=== PATIENT | female | born 1965 | race Caucasian/White ===

== ENCOUNTER 2017-08-14 08:03 | Emergency (ER) | payer MEDICAID ==
[~2017-08-14] VITALS: Ht 152.4 cm; Wt 56.8 kg
[2017-08-14 08:11] VITALS: BP 112/69
[2017-08-14] MEDS ORDERED: IMI50 PO (08:21)
--- NOTE | 2017-08-14 08:22 | NUR ---
Patient ambulated to bed 11 at this time.
--- NOTE | 2017-08-14 08:23 | NUR ---
52/F BIB FAMILY C/O HEADACHE AND MID ABDOMINAL PAIN & N/V X1DAY.SKIN IS PINK/WARM/DRY; AAOX4 WITH EVEN AND STEADY GAIT; LUNGS CLEAR BL; HR EVEN AND REGULAR; PT DENIES ANY FEVER, CP, SOB, OR COUGH AT THIS TIME; PATIENT STATES PAIN OF 9/10 AT THIS TIME; PATIENT POSITIONED FOR COMFORT; HOB ELEVATED; BEDRAILS UP X2; BED DOWN. ER MADE AWARE OF PT STATUS. Addendum: 08/14/17 at 0849 by [email or web address] HX OF MIGRAINE & BRAIN ANEURYSM IN 2010.
[2017-08-14] MEDS ORDERED: ONDANSETRON 4 MG/2 ML VIAL IVP ONE (08:45)
[2017-08-14] MEDS ORDERED: KETOROLAC 30 MG/ML VIAL IVP ONE (08:45)
[2017-08-14] MEDS ORDERED: diphenhydrAMINE 50 MG/ML VIAL IVP ONE (08:45)
[2017-08-14] MEDS ORDERED: NACL 0.9% 1,000 ML IV ONE (08:45)
[2017-08-14] MEDS ORDERED: SUMAtriptan 6 MG/0.5 ML VIAL SUBQ ONE (09:15)
--- NOTE | 2017-08-14 10:16 | NUR ---
Patient appears to be SLEEPING comfortably in bed. Vital Signs within normal limits. Respirations even and unlabored.
[2017-08-14 10:20] VITALS: BP 114/71
--- NOTE | 2017-08-14 10:20 | NUR ---
Patient discharged with v/s stable. Written and verbal after care instructions given and explained. Patient verbalized understanding. Ambulatory with steady gait. All questions addressed prior to discharge. Advised to follow up with PMD.
== END 2017-08-14 10:20 | disposition home or self-care (01) ==
LOC: MED 08:03
DX: G43.909 Migraine, unspecified, not intractable, without status migrainosus (principal); R11.2 Nausea with vomiting, unspecified
CPT/HCPCS: 81002; 81025; 96361; 96372; 96374; 96375; 99284; J1200; J1885; J2405; J3030; J7030

== ENCOUNTER 2023-01-11 12:57 | Emergency (ER) | payer MEDICAID ==
[~2023-01-11] VITALS: Ht 157.5 cm; Wt 61.7 kg
[~2023-01-11 12:57] MED LIST: IMI50 PO
--- NOTE | 2023-01-11 13:00 | NUR ---
TO ER BED 8
[2023-01-11 13:01] VITALS: BP 126/69
[2023-01-11] MEDS ORDERED: ALUMINUM HYD/MAG/SIMETHICONE 30 ML UDC PO ONE (13:25)
[2023-01-11] MEDS ORDERED: ACETAMINOPHEN EXTRA STRENGTH 500 MG TAB PO ONE (13:25)
[2023-01-11] MEDS ORDERED: FAMOTIDINE 20 MG TAB PO ONE (13:25)
--- NOTE | 2023-01-11 13:25 | NUR ---
57 y/o F BIB self from home c/o chest pain x 3 days. Patient A&Ox4, ambulatory, states chest pain 8/10, sharp/burning/constant, radiating from abdomen to chest and left shoulder. Aggrevating factors w/ laying position. Ptaient states dizziness, nausea. Reports diclofenac with minor relief. Denies SOB, chills, fever, vomiting, constipation, diarrhea, urinary symptoms. Bed locked in lowest position, side rails x 1. PMH/Sx/Meds: Denies NKDA
--- NOTE | 2023-01-11 13:41 | NUR ---
Lab at bedside
--- NOTE | 2023-01-11 13:41 | NUR ---
RAD at bedside
[2023-01-11 14:15] LABS: BASOPHILS % (AUTO) 0.6 % (0.0-2.0); EOSINOPHILS # (AUTO) 0.2 K/uL (0-0.4); EOSINOPHILS % (AUTO) 2.4 % (0.0-4.0); HEMATOCRIT 44.8 % (36-48); LYMPHOCYTES # (AUTO) 3.9 K/uL (2.5-16.5); LYMPHOCYTES % (AUTO) 49.2 % (20.5-51.1); MEAN CORPUSCULAR HEMOGLOBIN 29 pg (27-31); MEAN CORPUSCULAR HGB CONC 33 g/dL (33-37); MEAN CORPUSCULAR VOLUME 87.6 fL (80-94); MONOCYTES # (AUTO) 0.6 K/uL (0.8-1.0); MONOCYTES % (AUTO) 7.9 % (1.7-9.3); NEUTROPHILS # (AUTO) 3.1 K/uL (1.8-7.7); NEUTROPHILS % (AUTO) 39.9 % (42.2-75.2); PLATELET COUNT (AUTO) 269 K/uL (140-450); RED BLOOD CELL COUNT(AUTO) 5.12 MIL/uL (4.20-5.40); RED CELL DISTRIBUTION WIDTH 14.5 % (11.6-13.7); WHITE BLOOD COUNT (AUTO) 7.9 K/uL (4.8-10.8)
[2023-01-11 14:36] LABS: ALBUMIN 3.5 g/dL (3.4-5.0); ANION GAP 12.3 (8-16); ASPARTATE AMINOTRANSFERASE 14 U/L (15-37); CARBON DIOXIDE 27.1 mmol/L (21-32); CHLORIDE 104 mmol/L (98-107); CREATININE 0.8 mg/dL (0.6-1.3); GFR ARICAN-AMERICAN 95 mL/min (>90); GLUCOSE 133 mg/dL (74-106); LIPASE 167 U/L (73-393); POTASSIUM 3.4 mmol/L (3.5-5.1); SODIUM SERUM 140 mmol/L (136-145); TOTAL BILIRUBIN 0.6 mg/dL (0.0-1.0); UREA NITROGEN, BLOOD 19 mg/dL (7-18)
[2023-01-11] MEDS ORDERED: ALUM355S59 PO (14:50)
[2023-01-11] MEDS ORDERED: FAMO-90 PO (14:50)
[2023-01-11 15:08] VITALS: BP 117/62
--- NOTE | 2023-01-11 15:08 | NUR ---
Patient discharged with v/s stable. Written and verbal after care instructions given and explained for Gastroesophageal Reflux Disease, Adult. Patient alert, oriented and verbalized understanding of instructions. Ambulatory with steady gait. All questions addressed prior to discharge. ID band removed. Patient advised to follow up with PMD. Rx of Pepcid, Maalox Advanced Suspension given. Patient educated on indication of medication including possible reaction and side effects. Opportunity to ask questions provided and answered. Copies of RAD, blood work, UA given to patient.
== END 2023-01-11 15:08 | disposition home or self-care (01) ==
LOC: MED 12:57
DX: K21.9 Gastro-esophageal reflux disease without esophagitis (principal); Z79.899 Other long term (current) drug therapy
CPT/HCPCS: 36415; 71045; 80053; 83690; 84484; 85025; 93005; 99285

== ENCOUNTER 2023-08-24 07:23 | Emergency (ER) | payer SELFPAY ==
[~2023-08-24] VITALS: Ht 147.3 cm; Wt 60.8 kg
[~2023-08-24 07:23] MED LIST changes: +ALUM355S59 PO; +FAMO-90 PO
[2023-08-24 07:41] VITALS: BP 139/81; PULSE 73; RESP 18; TEMP 96.6; O2SAT 99
[2023-08-24] MEDS ORDERED: METOCLOPRAMIDE 10 MG/2 ML INJ VIAL IVP ONE (08:15)
[2023-08-24] MEDS ORDERED: diphenhydrAMINE 50 MG/ML VIAL IVP ONE (08:15)
[2023-08-24] MEDS ORDERED: NACL 0.9% 1,000 ML IV ONE (08:15)
[2023-08-24 08:42] LABS: APPEARANCE,URINE CLEAR (CLEAR); BILIRUBIN,URINE NEGATIVE (NEGATIVE); BLOOD, URINE 2+ (NEGATIVE); COLOR,URINE YELLOW (YELLOW); LEUKOCYTE ESTERASE ,URINE NEGATIVE (NEGATIVE); NITRITE, URINE NEGATIVE (NEGATIVE); PROTEIN,URINE NEGATIVE (NEGATIVE); UGLUCOSE NEGATIVE (NEGATIVE); UROBILINOGEN,URINE 0.2 EU/dL (0.2 - 1)
[2023-08-24 08:52] LABS: BACTERIA,URINE FEW /HPF (None Seen); SQUAMOUS EPITHELIAL CELL,UR 0-3 (FEW) /LPF (0-3 (FEW)); WBC,URINE 0-5 /HPF (0-5)
[2023-08-24] MEDS ORDERED: IBUP-2213 PO (09:19)
[2023-08-24] MEDS ORDERED: ACET-8905 PO (09:19)
[2023-08-24] MEDS ORDERED: ONDA8TAB87 PO (09:19)
[2023-08-24 09:55] VITALS: BP 134/72; PULSE 65; RESP 18; TEMP 97.8; O2SAT 97
== END 2023-08-24 09:55 | disposition home or self-care (01) ==
LOC: MED 07:23
DX: R51.9 Headache, unspecified (principal); E11.9 Type 2 diabetes mellitus without complications; Z90.710 Acquired absence of both cervix and uterus; Z79.899 Other long term (current) drug therapy
CPT/HCPCS: 81001; 82948; 96361; 96374; 96375; 99284; J1200; J2765; J7030

== ENCOUNTER 2024-05-25 14:01 | Emergency (ER) | payer SELFPAY ==
[~2024-05-25] VITALS: Ht 152.4 cm; Wt 58.5 kg
[~2024-05-25 14:01] MED LIST changes: +ACET-8905 PO; +IBUP-2213 PO; +ONDA8TAB87 PO
[2024-05-25 14:04] VITALS: BP 121/65; RESP 18; TEMP 98.1; O2SAT 99
[2024-05-25 14:30] VITALS: O2SAT 99
[2024-05-25] MEDS ORDERED: VANCOMYCIN 1,000 MG VIAL ONE ×2 (14:48→15:48)
[2024-05-25 14:56] LABS: BASOPHILS # (AUTO) 0.1 K/uL (0.00-0.22); BASOPHILS % (AUTO) 0.7 % (0.0-2.0); EOSINOPHILS # (AUTO) 0.2 K/uL (0-0.4); EOSINOPHILS % (AUTO) 2.6 % (0.0-4.0); HEMATOCRIT 38.3 % (36-48); HEMOGLOBIN 12.8 g/dL (12.0-16.0); LYMPHOCYTES # (AUTO) 2.8 K/uL (2.5-16.5); LYMPHOCYTES % (AUTO) 35.4 % (20.5-51.1); MEAN CORPUSCULAR HEMOGLOBIN 28 pg (27-31); MEAN CORPUSCULAR HGB CONC 33 g/dL (33-37); MEAN CORPUSCULAR VOLUME 84.7 fL (80-94); MONOCYTES # (AUTO) 0.6 K/uL (0.8-1.0); MONOCYTES % (AUTO) 7.7 % (1.7-9.3); NEUTROPHILS # (AUTO) 4.2 K/uL (1.8-7.7); NEUTROPHILS % (AUTO) 53.6 % (42.2-75.2); PLATELET COUNT (AUTO) 305 K/uL (140-450); RED BLOOD CELL COUNT(AUTO) 4.52 MIL/uL (4.20-5.40); RED CELL DISTRIBUTION WIDTH 13.7 % (11.6-13.7); WHITE BLOOD COUNT (AUTO) 7.9 K/uL (4.8-10.8)
[2024-05-25] MEDS: ONDANSETRON 4 MG/2 ML VIAL IVP ONE (15:09)
[2024-05-25] MEDS: VANCOMYCIN 1,000 MG in DEXTROSE 5% 250 ML IV ONE (15:10)
[2024-05-25] MEDS: MORPHINE SULFATE 2 MG/ML SYR IVP ONE (15:11)
[2024-05-25 15:13] LABS: ANION GAP 10.7 (8-16); CALCIUM 9.2 mg/dL (8.5-10.1); CARBON DIOXIDE 28.3 mmol/L (21-32); CREATININE 0.7 mg/dL (0.6-1.3)
[2024-05-25] MEDS: POTASSIUM CHLORIDE 10 MEQ TABER PO ONE (15:50)
[2024-05-25 16:54] VITALS: O2SAT 98
[2024-05-25] MEDS ORDERED: CEPH-588 PO (17:46)
[2024-05-25 18:13] VITALS: BP 111/63; PULSE 68; RESP 18; TEMP 98.1; O2SAT 98
== END 2024-05-25 18:11 | disposition home or self-care (01) ==
LOC: MED 14:01
DX: N61.0 Mastitis without abscess (principal); E11.9 Type 2 diabetes mellitus without complications; Z86.69 Personal history of other diseases of the nervous system and sense organs; Z79.1 Long term (current) use of non-steroidal anti-inflammatories (NSAID); Z79.2 Long term (current) use of antibiotics; Z79.899 Other long term (current) drug therapy
CPT/HCPCS: 36415; 71260; 80048; 83605; 85025; 87040; 87070; 87075; 87205; 96365; 96366; 96375; 99285; J2270; J2405; J3370; Q9967